=== PATIENT | female | born 1960 | race Caucasian/White ===

== ENCOUNTER 2018-10-26 07:59 | Emergency (ER) | payer SELFPAY ==
[~2018-10-26] VITALS: Ht 142.2 cm; Wt 105.7 kg
[2018-10-26 08:06] VITALS: Ht 142.2 cm; Wt 105.7 kg
[2018-10-26 08:43] VITALS: BP 198/86
== END 2018-10-26 08:43 | disposition home or self-care (01) ==
LOC: ED 07:59
DX: B02.29 Other postherpetic nervous system involvement (principal)